=== PATIENT | female | born 1985 | race Caucasian/White ===

== ENCOUNTER 2018-10-14 16:43 | Emergency (ER) | payer MEDICAID ==
[2018-10-14] MEDS: KETOROLAC 30 MG INJ IV (19:02)
[2018-10-14] MEDS: SOD CHLORIDE 0.9% 1,000 ML IV (19:02)
[2018-10-14] MEDS: METOCLOPRAMIDE 10 MG INJ IV (19:02)
[2018-10-14] MEDS: DIPHENHYDRAMINE 50 MG INJ IV (19:02)
[2018-10-14] MEDS: MECLIZINE 12.5 MG TAB PO (19:54)
[2018-10-14] MEDS: HYDROCODONE/APAP (5/325) TAB PO (20:00)
[2018-10-14] MEDS: morphine 2 MG INJ IV (20:00)
== END 2018-10-14 20:50 | disposition home or self-care (01) ==
LOC: FTE 16:43
DX: G43.909 Migraine, unspecified, not intractable, without status migrainosus (principal)
CPT/HCPCS: 70450; 81025; 96361; 96374; 96375; 99285-25